=== PATIENT | female | born 1960 | race African-American/Black ===

== ENCOUNTER 2019-06-07 12:23 | Emergency (ER) | payer SELFPAY ==
[~2019-06-07] VITALS: Ht 160 cm; Wt 70.0 kg
[2019-06-07] MEDS ORDERED: DIPHENHYDRAMINE 25MG CAPSULE PO ONE (14:45)
[2019-06-07 14:49] VITALS: BP 142/69
== END 2019-06-07 14:49 | disposition home or self-care (01) ==
LOC: ER 13:22
DX: L53.9 Erythematous condition, unspecified (principal); R21 Rash and other nonspecific skin eruption; F17.200 Nicotine dependence, unspecified, uncomplicated
CPT/HCPCS: 99282; Q0163